=== PATIENT | female | born 1965 | race Caucasian/White ===

== ENCOUNTER 2017-03-08 10:36 | Inpatient (IN) | payer OTHER ==
[~2017-03-08] VITALS: Ht 157.5 cm; Wt 59.0 kg
[~2017-03-08 10:36] MED LIST: ASA-EC81 MG PO; AVAPRO150 MG PO; CALTRATE 600600 MG PO; CEFADROXIL500 MG/5 M PO; COZAAR25 MG; FOLIC ACID1 MG PO; HUMALOG100 U/ML SUBCUTANEO; ISOSORBIDE DINI30 MG; LANTUS100 U/ML SUBCUTANEO; LIPITOR80 MG PO; PERCOCET 5/3251 TAB PO; RANEXA1000 MG PO; SYNTHROID150 MCG PO; XARELTO10 MG PO
[2017-03-08] MEDS ORDERED: MILLIPRED DP5 M1 (10:52)
[2017-03-11] MEDS ORDERED: ISOSORBIDE MONO30 MG PO (10:53)
[2017-03-11] MEDS ORDERED: Neurin-Sl Tablet Sl SL (10:53)
[2017-03-11] MEDS ORDERED: XARELTO10 MG PO (10:53)
[2017-03-11] MEDS ORDERED: AVAPRO150 MG PO (10:53)
[2017-03-11] MEDS ORDERED: Prednisone PO (10:53)
[2017-03-11] MEDS ORDERED: Plaquenil PO (10:53)
[2017-03-11] MEDS ORDERED: LOPRESSOR25 MG PO (10:53)
[2017-03-11] MEDS ORDERED: SYNTHROID150 MCG PO (10:53)
[2017-03-11] MEDS ORDERED: LIPITOR80 MG PO (10:53)
[2017-03-11] MEDS ORDERED: B Complex CAPSULE PO (10:53)
[2017-03-11] MEDS ORDERED: ASA-EC81 MG PO (10:53)
[2017-03-11] MEDS ORDERED: DUI500 PO (18:23)
[2017-03-11] MEDS ORDERED: BACTRIM DS TAB1 EACH PO (18:23)
[2017-03-11] MEDS ORDERED: PERCOCET 5-3251 EACH PO (18:25)
== END 2017-03-11 18:30 | disposition home or self-care (01) | DRG 493 ==
LOC: ER 10:36 → SURH 11:19 → SEC-K 11:19 → SURH 13:27
PROVIDERS: Orthopaedic Surgery
PROC: B246ZZZ Ultrasonography of Right and Left Heart (ICD-10-PCS; 2017-03-08)
PROC: 0QR Lower Bones, Replacement (ICD-10-PCS; 2017-03-09)
PROC: 0MQQ0ZZ Repair Right Ankle Bursa and Ligament, Open Approach (ICD-10-PCS; 2017-03-09)
PROC: 0MQQ0ZZ Repair Right Ankle Bursa and Ligament, Open Approach (ICD-10-PCS; 2017-03-09)
PROC: 0QSJ04Z Reposition Right Fibula with Internal Fixation Device, Open Approach (ICD-10-PCS; principal; 2017-03-09 12:00)
DX: S82.851A Displaced trimalleolar fracture of right lower leg, initial encounter for closed fracture (principal); N17.8 Other acute kidney failure; W18.39XA Other fall on same level, initial encounter; Y93.89 Activity, other specified; Y92.89 Other specified places as the place of occurrence of the external cause; Y99.8 Other external cause status; E10.65 Type 1 diabetes mellitus with hyperglycemia; Z79.4 Long term (current) use of insulin; E03.8 Other specified hypothyroidism; I25.10 Atherosclerotic heart disease of native coronary artery without angina pectoris; I10 Essential (primary) hypertension; M32.8 Other forms of systemic lupus erythematosus; Z79.52 Long term (current) use of systemic steroids; S93.04XA Dislocation of right ankle joint, initial encounter; S93.421A Sprain of deltoid ligament of right ankle, initial encounter; S90.01XA Contusion of right ankle, initial encounter; Z95.1 Presence of aortocoronary bypass graft

== ENCOUNTER → 2018-05-15 | Emergency (ER) | payer OTHER ==
[~2018-05-15] VITALS: Ht 152.4 cm; Wt 70.3 kg
[~2018-05-15] MED LIST changes: +B Complex CAPSULE PO; +BACTRIM DS TAB1 EACH PO; +DUI500 PO; +ISOSORBIDE MONO30 MG PO; +LOPRESSOR25 MG PO; +MILLIPRED DP5 M1; +Neurin-Sl Tablet Sl SL; +PERCOCET 5-3251 EACH PO; +Plaquenil PO; +Prednisone PO
== END | disposition left against medical advice (07) ==
LOC: ER 22:53
DX: Z53.20 Procedure and treatment not carried out because of patient's decision for unspecified reasons (principal)